=== PATIENT | male | born 1955 | race Caucasian/White ===

== ENCOUNTER → 2019-01-02 | Outpatient (CLI) | payer OTHER ==
--- NOTE | 2019-01-02 15:36 | Diagnostic Imaging Report ---
PROCEDURE: CT abdomen and pelvis without contrast. TECHNIQUE: Multiple contiguous axial images were obtained through the abdomen and pelvis without the use of intravenous contrast. Auto Exposure Controls were utilized during the CT exam to meet ALARA standards for radiation dose reduction. INDICATION: Microhematuria. FINDINGS: There are no prior studies available for comparison. There is no evidence for nephrolithiasis or urolithiasis and the kidneys do not appear to be obstructed. There is a 1.6 cm rounded exophytic lesion of slightly diminished density along the lateral aspect of the right kidney. I suspect that this is a cyst. Even so, ultrasound will be recommended to confirm this unless there are previous studies available to demonstrate that this finding is stable. The urinary bladder is only partially filled and consequently not well evaluated. There is no obvious bladder abnormality evident. The prostate gland is not enlarged. There is no pelvic mass or free fluid collection evident. The appendix is visualized and is not abnormally thickened. There is a fair amount of fecal material throughout the ascending colon. The liver, spleen, pancreas, adrenals, gallbladder, aorta, and inferior vena cava show no sign of an acute abnormality. Stomach is not well distended and consequently difficult to assess. The lung bases are clear. The bone windows show no sign of a fracture or of a destructive lesion. There is at least moderate degenerative disc and bony disease at L5-S1. IMPRESSION: 1. There is no evidence for nephrolithiasis or urolithiasis to account for the patient's microhematuria. The urinary bladder is grossly unremarkable. 2. The 1.6 cm exophytic lesion along the lateral aspect of the right kidney is most likely a cyst. Ultrasound will be recommended to confirm this. 3. There is no acute abnormality of the abdomen or pelvis noted otherwise. Dictated by: Dictated on workstation # [id number]
== END ==
LOC: RAD 14:00
PROVIDERS: ATTEND Urology
DX: N28.89 Other specified disorders of kidney and ureter (principal); R31.29 Other microscopic hematuria
CPT/HCPCS: 74176

== ENCOUNTER → 2019-01-10 | Outpatient (CLI) | payer OTHER ==
--- NOTE | 2019-01-10 17:21 | Diagnostic Imaging Report ---
PROCEDURE: US Renal Bilateral. TECHNIQUE: Multiple real-time grayscale images were obtained over the kidneys in various projections bilaterally. INDICATION: Right renal cyst COMPARISON is made to CT abdomen dated 01/02/2019. Right kidney measures 10.4 x 5.1 x 5.7 cm. Left kidney measures 9.9 x 4.8 x 5.3 cm. There is a simple appearing cyst on the lateral margin of the right kidney that measures 2.0 x 2.3 x 1.6 cm. It has simple cyst characteristics. There is no solid mass, calculus or hydronephrosis in either kidney. Urinary bladder appeared normal. IMPRESSION: Lesion in the right kidney appears to be a simple cyst by ultrasound. Dictated by: Dictated on workstation # [id number]
== END ==
LOC: RAD 12:28
PROVIDERS: ATTEND Urology
DX: N28.9 Disorder of kidney and ureter, unspecified (principal)
CPT/HCPCS: 76770

== ENCOUNTER 2019-09-22 17:26 | Emergency (ER) | payer OTHER ==
[~2019-09-22] VITALS: Ht 175 cm; Wt 80.0 kg
--- NOTE | 2019-09-22 17:37 | ED Lower Extremity ---
General Stated Complaint: BLEEDING FROM SURGICAL SITE History of Present Illness Date Seen by Provider: Sep 22, 2019 Time Seen by Provider: 17:15 Initial Comments Patient is here with recent procedure to open up his left peripheral vascular system also had stents did not have a seal placed at the femoral catheter site and had some bleeding that soaked the gauze today not much beyond the gauze. The gauze was soaked. Was told to come in by EMS and have it checked. Is on Plavix but no other blood thinner he has no pain associated with this. Onset: just prior to arrival Severity: mild Method of Injury: other Modifying Factors: Improves With Movement Allergies and Home Medications Patient Home Medication List Home Medication List Reviewed: Yes Review of Systems Constitutional: no symptoms reported EENTM: no symptoms reported Respiratory: no symptoms reported Cardiovascular: no symptoms reported Musculoskeletal: no symptoms reported Skin: other (bloodsoaked gauze in the left groin under a Tegaderm) Past Pymqgya-Fyhwff-Bobwes Hx Past Med/Social Hx: Reviewed Nursing Past Med/Soc Hx Patient Social History Recent Foreign Travel: No Contact w/Someone Who Travel: No Physical Exam Vital Signs Vital Signs - First Documented 09/22/19 17:38 Temp 36.6 Pulse 100 Resp 18 B/P (MAP) 158/97 (117) Pulse Ox 96 O2 Delivery Room Air Capillary Refill : Height, Weight, BMI Height: '" Weight: lbs. oz. kg; BMI Method: General Appearance: WD/WN, no apparent distress HEENT: TMs normal, pharynx normal Cardiovascular: regular rate, rhythm, no murmur Respiratory: lungs clear, normal breath sounds Gastrointestinal: normal bowel sounds, non tender, soft, other (left groin shows a bloodsoaked 2 x 2 100 Tegaderm no active bleeding at seems at this time.) Neurologic/Psychiatric: no motor/sensory deficits, alert, normal mood/affect, oriented x 3 Skin: normal color, warm/dry Progress/Results/Core Measures Results/Orders Lab Results Laboratory Tests Test 09/22/19 17:40 Range/Units White Blood Count 12.8 H 4.3-11.0 10^3/uL Red Blood Count 5.02 4.35-5.85 10^6/uL Hemoglobin 16.4 13.3-17.7 G/DL Hematocrit 47 40-54 % Mean Corpuscular Volume 93 80-99 FL Mean Corpuscular Hemoglobin 33 25-34 PG Mean Corpuscular Hemoglobin Concent 35 32-36 G/DL Red Cell Distribution Width 12.6 10.0-14.5 % Platelet Count 265 130-400 10^3/uL Mean Platelet Volume 9.8 7.4-10.4 FL Neutrophils (%) (Auto) 90 H 42-75 % Lymphocytes (%) (Auto) 9 L 12-44 % Monocytes (%) (Auto) 1 0-12 % Eosinophils (%) (Auto) 0 0-10 % Basophils (%) (Auto) 0 0-10 % Neutrophils # (Auto) 11.4 H 1.8-7.8 X 10^3 Lymphocytes # (Auto) 1.1 1.0-4.0 X 10^3 Monocytes # (Auto) 0.2 0.0-1.0 X 10^3 Eosinophils # (Auto) 0.0 0.0-0.3 10^3/uL Basophils # (Auto) 0.0 0.0-0.1 10^3/uL Neutrophils % (Manual) 87 % Lymphocytes % (Manual) 10 % Monocytes % (Manual) 3 % Eosinophils % (Manual) 0 % Basophils % (Manual) 0 % Band Neutrophils 0 % Prothrombin Time 12.4 12.2-14.7 SEC INR Comment 0.9 0.8-1.4 Activated Partial Thromboplast Time 26 24-35 SEC My Orders Orders - ANGELICA COLEMAN JR, MD Cbc With Automated Diff (09/22/19 17:34) Partial Thromboplastin Time (09/22/19 17:34) Protime With Inr (09/22/19 17:34) Manual Differential (09/22/19 17:40) Vital Signs/I&O 09/22/19 17:38 Temp 36.6 Pulse 100 Resp 18 B/P (MAP) 158/97 (117) Pulse Ox 96 O2 Delivery Room Air Departure Communication (Admissions) Bleeding minimally on arrival blood work shows good clotting factors and good hemoglobin remove dressing was oozing slightly pressure resolved at discussed care at home will limed to return back to his house follow-up with problems Impression Primary Impression: Post-op bleeding Qualified Codes: I97.618 - Postprocedural hemorrhage of a circulatory system organ or structure following other circulatory system procedure Disposition: HOME, SELF-CARE Condition: Stable Departure-Patient Inst. Referrals: NO,LOCAL PHYSICIAN (PCP/Family) Primary Care Physician Patient Instructions: Bleeding After Surgery Add. Discharge Instructions: Call if any problems return if need be ANGELICA COLEMAN JR, MD Sep 22, 2019 17:37
[2019-09-22 17:46] LABS: HEMATOCRIT 47 % (40-54); HEMOGLOBIN 16.4 G/DL (13.3-17.7); MEAN CORPUSCULAR HEMOGLOBIN 33 PG (25-34); MEAN CORPUSCULAR HGB CONC 35 G/DL (32-36); MEAN CORPUSCULAR VOLUME 93 FL (80-99); MEAN PLATELET VOLUME 9.8 FL (7.4-10.4); PLATELET COUNT 265 10^3/uL (130-400); RED CELL DISTRIBUTION WIDTH 12.6 % (10.0-14.5); WHITE BLOOD COUNT 12.8 10^3/uL (4.3-11.0)
[2019-09-22 17:48] LABS: BASOPHILS % (AUTO) 0 % (0-10); EOSINOPHILS % (AUTO) 0 % (0-10); LYMPHOCYTES # (AUTO) 1.1 X 10^3 (1.0-4.0); LYMPHOCYTES % (AUTO) 9 % (12-44); MONOCYTES # (AUTO) 0.2 X 10^3 (0.0-1.0); MONOCYTES % (AUTO) 1 % (0-12); NEUTROPHILS # (AUTO) 11.4 X 10^3 (1.8-7.8); NEUTROPHILS % (AUTO) 90 % (42-75)
[2019-09-22 18:05] LABS: BAND NEUTROPHILS 0 %; BASOPHILS % (MANUAL) 0 %; EOSINOPHILS % (MANUAL) 0 %; INR 0.9 (0.8-1.4); LYMPHOCYTES % (MANUAL) 10 %; MONOCYTES % (MANUAL) 3 %; NEUTROPHILS % (MANUAL) 87 %; PROTHROMBIN TIME PATIENT 12.4 SEC (12.2-14.7)
--- OUTSIDE RECORDS SUMMARY | 2019-09-22 18:16 | XMS REPORT | Continuity of Care Document ---
Author Author [facility] Organization [facility] Address Unknown Phone Unavailable Allergies There is no data. Medications There is no data. Problems Date Dx Coded Attending Type Code Diagnosis Diagnosed By 01/04/2019 THOMAS SILVA MD, Ot N28.8 9 OTHER SPECIFIED DISORDERS OF KIDNEY AND 01/04/2019 THOMAS SILVA MD, Ot R31.2 9 OTHER MICROSCOPIC HEMATURIA 01/16/2019 THOMAS SILVA MD, Ot N28.9 DISORDER OF KIDNEY AND URETER, UNSPECIFI 01/30/2019 THOMAS SILVA MD, Ot N28.9 DISORDER OF KIDNEY AND URETER, UNSPECIFI 07/05/2019 THOMAS SILVA MD Ot N28.9 DISORDER OF KIDNEY AND URETER, UNSPECIFI 07/05/2019 THOMAS SILVA MD, Ot N28.9 DISORDER OF KIDNEY AND URETER, UNSPECIFI 07/05/2019 THOMAS SILVA MD, Ot N28.9 DISORDER OF KIDNEY AND URETER, UNSPECIFI 07/06/2019 THOMAS SILVA MD, Ot N28.9 DISORDER OF KIDNEY AND URETER, UNSPECIFI Procedures There is no data. Results Test Result Range Complete blood count (CBC) with automate d white blood cell (WBC) differential - 09/22/19 17:40 Blood leukocytes automated count (number/volume) 12.8 10*3/uL 4.3-11.0 Blood erythrocytes automated count (number/volume) 5.02 10*6/uL 4.35-5.85 Venous blood hemoglobin measurement (mass/volume) 16.4 g/dL 13.3-17.7 Blood hematocrit (volume fraction) 47 % 40-54 Automated erythrocyte mean corpuscular volume 93 [ foz_us] 80-99 Automated erythrocyte mean corpuscular h emoglobin (mass per erythrocyte) 33 pg 25-34 Automated erythrocyte mean corpuscular h emoglobin concentration measurement (mass/volume) 35 g/dL 32-36 Automated erythrocyte distribution width ratio 12. 6 % 10.0- 14.5 Automated blood platelet count (count/volume) 265 10*3/uL 130-400 Automated blood platelet mean volume measurement 9.8 [foz_us] 7.4-10.4 Automated blood neutrophils/100 leukocytes 90 % 42-75 Automated blood lymphocytes/100 leukocytes 9 % 12-44 Blood monocytes/100 leukocytes 1 % 0-12 Automated blood eosinophils/100 leukocytes 0 % 0-10 Automated blood basophils/100 leukocytes 0 % 0-10 Blood neutrophils automated count (number/volume) 11.4 10*3 1.8-7.8 Blood lymphocytes automated count (number/volume) 1.1 10*3 1.0-4.0 Blood monocytes automated count (number/volume) 0. 2 10*3 0.0-1.0 Automated eosinophil count 0.0 10*3/uL 0 .0-0.3 Automated blood basophil count (count/volume) 0.0 10*3/uL 0.0-0.1 PT panel in platelet poor plasma by coag ulation assay - 09/22/19 17:40 Prothrombin time (PT) in platelet poor plasma by coagu lation assay 12.4 s 12.2-14.7 INR in platelet poor plasma or blood by coagulation as say 0.9 0.8-1.4 Activated partial thromboplastin time (a PTT) in platelet poor plasma bycoagulation assay - 09/22/19 17:40 Activated partial thromboplastin time (a PTT) in platelet poor plasma bycoagulation assay 26 s 24-35 Manual absolute plasma cell count - 09/08 05/28 17:40 Blood monocytes/100 leukocytes 3 % NRG Manual blood segmented neutrophils/100 leukocytes 87 % NRG Blood band neutrophils/100 leukocytes 0 % NRG Manual blood lymphocytes/100 leukocytes 10 % NRG Manual eosinophils/100 leukocytes in nose 0 % NRG Manual blood basophils/100 leukocytes 0 % NRG Encounters ACCT No. Visit Date/Time Discharge Status Pt. Type Provider Facility Loc./Unit Complaint [id number] 09/20/2019 15:00:00 ACT Outpatient [facility] [id number] 01/10/2019 12:28:00 019 23:59:59 CLS Outpatient SHIRA BORDEN, THOMAS A [facility] RAD RT RENAL CYST [id number] 01/02/2019 14:00:00 019 23:59:59 CLS Outpatient THOAMS SILVA MD [facility] RAD MICROHEMATURIA [id number] 09/22/2019 17:27:[address] Emergency JARED BORDEN, ANGELICA Stein [facility] ER FS BLEEDING FROM SURGICAL SITE
[2019-09-22 18:36] VITALS: BP 132/68
== END 2019-09-22 18:30 | disposition home or self-care (01) ==
LOC: EDUNIT# 17:26 → ER FS 17:27
DX: I97.618 Postprocedural hemorrhage of a circulatory system organ or structure following other circulatory system procedure (principal)
CPT/HCPCS: 36415; 85007; 85027; 85610; 85730

== ENCOUNTER 2019-10-31 10:00 | Day surgery (SDC) | payer OTHER ==
[2019-10-31] VITALS (12 sets, daily range): BP systolic 115–178; BP diastolic 68–89
[~2019-10-31] VITALS: Ht 177 cm; Wt 85.0 kg
[2019-10-31 08:59] LABS: HEMOGLOBIN 17.1 G/DL (13.3-17.7); MEAN PLATELET VOLUME 9.8 FL (7.4-10.4); WHITE BLOOD COUNT 10.3 10^3/uL (4.3-11.0)
[2019-10-31 09:01] LABS: INR 0.9 (0.8-1.4); PROTHROMBIN TIME PATIENT 12.7 SEC (12.2-14.7)
[2019-10-31 09:12] LABS: ALANINE AMINOTRANSFERASE 20 U/L (0-55); ALBUMIN 4.3 GM/DL (3.2-4.5); ALKALINE PHOSPHATASE 61 U/L (40-136); BILIRUBIN,TOTAL 0.5 MG/DL (0.1-1.0); BUN/CREATININE RATIO 12; CALCIUM 9.1 MG/DL (8.5-10.1); CARBON DIOXIDE 25 MMOL/L (21-32); CHLORIDE 107 MMOL/L (98-107); CHOLESTEROL 182 MG/DL (< 200); CREATININE SERUM 1.11 MG/DL (0.60-1.30); GFR ESTIMATED > 60; GLUCOSE 99 MG/DL (70-105); HDL CHOLESTEROL 38 MG/DL (40-60); POTASSIUM 4.3 MMOL/L (3.6-5.0); SODIUM 143 MMOL/L (135-145); TOTAL PROTEIN 7.4 GM/DL (6.4-8.2); TRIGLYCERIDES 134 MG/DL (<150); VLDL CHOLESTEROL 27 MG/DL (5-40)
[~2019-10-31 10:00] MED LIST: ADENOSINE 3 MG/1 ML (ADENOSCAN) 30ML VIAL IV ONE; ASPI-999 PO; ATOR40TA70 PO; CARV12.53 PO; CLOP75TA28 PO; CYCL10TA9 PO; GABA-490 PO; HEParin (CATH LAB) 2,000 ML IV ONE; HEParin 1000 UNIT/ML (10ML VIAL) FOR BOLUS ONE; LIDOCAINE 1% INJ 20 ML 20 ML VIAL ONE; MIDAZOLAM 5 MG/5 ML (VERSED) VIAL ONE; MULT-1136 PO; NS IV 1000 ML 1,000 ML IV SCH; NS IV 1000 ML 1,000 ML ONE; fentaNYL INJECTION 100 MCG/2 ML AMP ONE
[2019-10-31] MEDS ORDERED: NS IV 1000 ML 1,000 ML IV SCH (10:27)
--- NOTE | 2019-10-31 10:29 | Cardiac Procedure Note-CS/ASA ---
Pre-Procedure Note Pre-Op Procedure Note H&P Reviewed The H&P was reviewed, patient examined and no changes noted. Date H&P Reviewed: Oct 31, 2019 Time H&P Reviewed: 09:45 Conscious Sedation Pre-Proced Time 09:45 ASA Score 3 For ASA 3 and 4: Consider anesthesia and medical clearance. Also, for patients with a history of failed moderate sedation consider anesthesia. Airway Lungs Heart ASA score ASA 1: a normal healthy patient ASA 2: a patient with a mild systemic disease (mid diabetes, controlled hypertension, obesity ASA 3: a patient with a severe systemic disease that limits activity (angina, COPD, prior Myocardial infarction) ASA 4: a patient with an incapacitating disease that is a constant threat to life (CHF, renal failure) ASA 5: a moribund patient not expected to survive 24 hrs. (ruptured aneurysm) ASA 6: a declared brain- patient whose organs are being harvested. For emergent operations, add the letter E after the classification Mallampati Classification Grade 2 Sedation Plan Analgesia, Amnesia, Plan communicated to team members, Discussed options with patient/fam, Discussed risks with patient/fam The patient is an appropriate candidate to undergo the planned procedure, sedation, and anesthesia. The patient immediately re-assessed prior to indication. MAU HERNANDEZ MD FACP FAC CCDS Oct 31, 2019 10:29
[2019-10-31] MEDS ORDERED: PATIENT MAY USE OWN MEDS, ALL PO SCH (10:30)
--- NOTE | 2019-10-31 10:31 | Discharge Inst-Cardiology ---
Discharge Inst-Cardiac Discharge Medications Continued Medications: Aspirin (Aspirin) 81 Mg Tab.chew 81 MG PO DAILY, TAB Atorvastatin Calcium (Atorvastatin Calcium) 40 Mg Tablet 40 MG PO DAILY, TAB Carvedilol (Carvedilol) 12.5 Mg Tablet 12.5 MG PO BID, TAB Clopidogrel Bisulfate (Clopidogrel) 75 Mg Tablet 75 MG PO DAILY, TAB Cyclobenzaprine HCl (Cyclobenzaprine HCl) 10 Mg Tablet 10 MG PO PRN, TAB Gabapentin (Gabapentin) 400 Mg Capsule 400 MG PO TID, CAP Multivitamin (Multivitamin) 1 Each Tablet 1 EACH PO DAILY, TAB MAU HERNANDEZ MD FACP FACC CCDS Oct 31, 2019 10:31
--- NOTE | 2019-10-31 10:32 | Discharge Inst-Post CATH ---
Discharge Inst-CATH/EP Post Cardiac Cath/EP D/C Inst Follow Up/Plan F/u with Dr Ty next week No smoking ACTIVITY * Go Home directly and rest. * Limit activity of the leg (or wrist if it was used) for 7 days including aerobics, swimming, jogging, bicycling, etc. * Restrict stair-climbing for 7 days if possible, if not, climb up with your non-cath leg, then bring together on the same step. * Avoid lifting, pushing, pulling or excessive movement of the affected extremity for 7 days. * Customary sexual activity may be resumed after 2 days-use caution not to use a position that strains or causes pain to the affected extremity. * No driving for 24 hours. * NO SMOKING. * Avoid straining for bowel movements for 7 days. * Gentle walking on level ground is allowed. * Returning to work will depend on the type of procedure and the results. Your doctor will discuss this with you. CALL YOUR DOCTOR FOR ANY OF THE FOLLOWING: *If bleeding from the puncture site occurs- Apply gentle pressure to site with clean cloth and call your doctor or EMS. * If a knot or lump forms under the skin, increases in size, or causes pain. * If bruising appears to be worsening or moving further down your leg instead of disappearing. * Temperature above 101 F. CARE OF YOUR GROIN INCISION; * Bruising or purple discoloration of the skin near the puncture site is common. * You may shower only, no bathtub bathing for 5 days. Be careful to avoid slipping as your leg may feel stiff. * If a closure device was used on your femoral artery, please see the attached guide regarding care of the device and your leg. * Leave dressing on FOR 24 hours. CARE OF YOUR WRIST INCISION; * Bruising or purple discoloration of the skin near the puncture site is common. * You may shower. * DO NOT submerge wrist. * Leave dressing on FOR 24 hours. MAU TY MD FACP FAC CCDS Oct 31, 2019 10:32
--- NOTE | 2019-10-31 13:12 | CARDIAC CATHETERIZATION ---
DATE OF SERVICE: 10/31/2019 CARDIAC CATHETERIZATION REPORT INDICATIONS: The patient is a 64-year-old gentleman, who was recently diagnosed with cardiomyopathy with a reported ejection fraction of approximately 40%. The electrocardiogram is suggestive of prior inferior wall myocardial infarction. Cardiac catheterization was recommended. Informed consent was obtained. DESCRIPTION OF PROCEDURE: He was brought to the cardiac catheterization laboratory in a fasting state. Right groin was prepared and draped in the usual sterile fashion. Lidocaine 1% was used for local anesthesia. Modified Seldinger technique was used to advance a 5-Andorran sheath in the right femoral artery, 5-Andorran JL4 catheter for left coronary angiography, 5-Andorran JR4 catheter for right coronary angiography, 5-Andorran pigtail catheter was used for left heart catheterization and left ventricular angiography. Aortic root angiography was also carried out. The right aortic root angiography was carried out to make sure that there were no additional coronary arteries, because the left circumflex artery was diminutive. No additional coronary arteries were seen. Subsequently, fractional flow reserve measurement was carried out in the right coronary artery that is described below. FRACTIONAL FLOW RESERVE MEASUREMENT IN THE RIGHT CORONARY ARTERY: The sheath was exchanged over a wire for a 6-Andorran sheath. The 5000 units of intravenous heparin were given. A 6-Andorran JR4 guide catheter was used to engage the right coronary artery. A pressure wire was across that was advanced across the lesion and the tip was placed in the distal vessel. Adenosine 140 mcg per kilogram per minute was infused for two and a half minutes. Fractional flow reserve was 0.92 and a lesion seen in the proximal right coronary artery that appeared to be 40% to 50% angiographically with some haziness. This lesion, based on fractional flow reserve measurement, is hemodynamically insignificant. The wire was removed. Angiography of the right coronary artery was repeated to make sure that there was no change in status. The catheter was then removed. The angiography of the right femoral artery was carried out through the sheath. Mynx was used to achieve hemostasis. HEMODYNAMICS: Left ventricular end-diastolic pressure following coronary angiography was 14 mmHg. There was no significant pressure gradient on pullback across the aortic valve. Ascending aortic pressure was 121/66 with a mean 86 mmHg. CORONARY ANGIOGRAPHY: Left main coronary artery is free of significant disease. Left anterior descending artery has mild plaques. Right coronary artery is diminutive. Right coronary artery is dominant. It had a mild to moderate proximal plaque with stenosis up to approximately 40% to 50%. Fractional flow reserve across these lesions is 0.92, indicating hemodynamic insignificance. LEFT VENTRICULAR ANGIOGRAPHY: Left ventricular angiography was carried out in right anterior oblique projection. There is hypokinesis to akinesis of the diaphragmatic wall of the left ventricle. Left ventricular ejection fraction is approximately 45%. AORTIC ROOT ANGIOGRAPHY: Aortic root angiography did not indicate any significant aortic root or ascending aortic aneurysm or dissection. Aortic valve leaflets exhibit good leaflet excursion. No significant aortic regurgitation is seen. No additional coronary arteries are identified other than the ones described above. CONCLUSIONS: 1. Mild coronary artery disease. 2. Hypokinesis to akinesis of the diaphragmatic wall of the left ventricle with left ventricular ejection fraction of approximately 45%. 3. Mild elevation of left ventricular end-diastolic pressure. DISCUSSION AND RECOMMENDATIONS: Based on results of the study, it appears appropriate to continue a conservative approach. Risk factor modification was reviewed. Outpatient followup is advised for further adjustment of medications. Job ID: [id number] DocumentID: [id number] Dictated Date: 10/31/2019 10:27:13 Zipper Setter Chainstitch Date: 10/31/2019 13:12:17 Dictated By: MAU HERNANDEZ MD, MA, FACP, FACC,
--- NOTE | 2019-10-31 14:47 | NUR ---
normal saline 1l bag infused.
== END 2019-10-31 14:47 | disposition home or self-care (01) ==
LOC: CATH 10:00 → SDC 10:40 → CATH 14:47
PROVIDERS: ATTEND Internal Medicine Cardiovascular Disease
DX: I42.0 Dilated cardiomyopathy (principal); I25.10 Atherosclerotic heart disease of native coronary artery without angina pectoris; I10 Essential (primary) hypertension; E78.5 Hyperlipidemia, unspecified; R94.31 Abnormal electrocardiogram [ECG] [EKG]; Z79.82 Long term (current) use of aspirin; Z79.899 Other long term (current) drug therapy; Z87.891 Personal history of nicotine dependence
CPT/HCPCS: 36415; 80053; 80061; 85027; 85610; 85730; 87081; 93458; 93567

== ENCOUNTER → 2020-08-01 | Outpatient (CLI) | payer OTHER ==
[~2020-08-01] MED LIST changes: -ADENOSINE 3 MG/1 ML (ADENOSCAN) 30ML VIAL IV ONE; -HEParin (CATH LAB) 2,000 ML IV ONE; -HEParin 1000 UNIT/ML (10ML VIAL) FOR BOLUS ONE; -LIDOCAINE 1% INJ 20 ML 20 ML VIAL ONE; -MIDAZOLAM 5 MG/5 ML (VERSED) VIAL ONE; -NS IV 1000 ML 1,000 ML IV SCH; -NS IV 1000 ML 1,000 ML ONE; -fentaNYL INJECTION 100 MCG/2 ML AMP ONE
--- NOTE | 2020-08-01 12:49 | Diagnostic Imaging Report ---
PROCEDURE: US Thyroid. TECHNIQUE: Multiple Real-time grayscale images were obtained of the thyroid in various projections. INDICATION: Thyroid nodule. COMPARISON: No previous for comparison. FINDINGS: The right lobe measures 5 x 2.3 x 1.7 cm. There are several small cystic areas which are anechoic. There is a solid hypoechoic nodule measuring 1 x 1 x 0.9 cm inferiorly in the right lobe. The left lobe measures 5 x 2.2 x 2 cm. There are several anechoic cystic areas. There is a solid hypoechoic slightly lobulated well-circumscribed nodule with some calcification inferiorly. This measures 1.1 x 1.1 x 0.9 cm. The isthmus measures 3 mm. IMPRESSION: Multinodular and multicystic thyroid. The hypoechoic nodule which is slightly lobulated and shows some calcification inferiorly in the left lobe is moderately suspicious. TI-RADS 4 Dictated by: Dictated on workstation # [id number]
== END ==
LOC: RAD FS 10:45
PROVIDERS: ATTEND Nurse Practitioner
DX: E04.2 Nontoxic multinodular goiter (principal)
CPT/HCPCS: 76536

== ENCOUNTER → 2022-03-05 | Outpatient (CLI) | payer OTHER ==
[~2022-03-05] MED LIST changes: +CYCL10TA25 PO; -CYCL10TA9 PO
== END ==
LOC: CARDFS 11:47
PROVIDERS: ATTEND Internal Medicine Cardiovascular Disease
DX: I35.1 Nonrheumatic aortic (valve) insufficiency (principal)
CPT/HCPCS: 93306

== ENCOUNTER → 2022-03-10 | Outpatient (CLI) | payer OTHER ==
[~2022-03-10] VITALS: Ht 177 cm; Wt 81.0 kg
[~2022-03-10] MED LIST changes: +REGADENOSON 0.4 MG/5 ML SYR (LEXISCAN) IV ONE
[2022-03-10] MEDS: CATHETER FLUSH 10 ML SYR IVP PRN ×2 (10:58→13:17)
[2022-03-10 13:16] VITALS: BP 143/99
--- NOTE | 2022-03-12 11:45 | STRESS TEST ---
DATE OF SERVICE: 03/10/2022 RESTING AND POST REGADENOSON TECHNETIUM-99M TETROFOSMIN SPECT CT IMAGING ORDERING PHYSICIAN: Dr. Ty. PRIMARY PHYSICIAN: Dr. Caldwell. CLINICAL DIAGNOSIS: Coronary artery disease. Baseline images were carried out after injection of 10.82 mCi of technetium-99m Tetrofosmin. This was followed by 0.4 mg regadenoson and 30.6 mCi of technetium-99m Tetrofosmin for stress imaging. The electrocardiogram showed sinus rhythm at baseline. The electrocardiogram did not change significantly with the regadenoson infusion. The patient tolerated the procedure well. Review of images at rest and following stress indicates a large inferolateral perfusion defect that is fixed. Gated images show inferolateral akinesis. Left ventricular ejection fraction is calculated to be 23%. There is moderate cardiomegaly. Left ventricular end-diastolic volume is 116 mL. CONCLUSION: 1. Large inferolateral myocardial infarction without ischemia. 2. Inferolateral akinesis. 3. Impairment of global left ventricular systolic function with a calculated ejection fraction of 23%. Job ID: [id number] DocumentID: [id number] Dictated Date: 03/12/2022 09:40:27 Day Care Provider Date: 03/12/2022 11:42:00 Dictated By: MAU TY MD; JAIMIE; FACP; FACC;
== END ==
LOC: CARD 10:33
PROVIDERS: ATTEND Internal Medicine Cardiovascular Disease
DX: I25.10 Atherosclerotic heart disease of native coronary artery without angina pectoris (principal)
CPT/HCPCS: 78452; 93017

== ENCOUNTER → 2022-08-17 | Outpatient (CLI) | payer OTHER ==
[~2022-08-17] MED LIST changes: +CATHETER FLUSH 10 ML SYR IV PRN; +IOHEXOL 350 MG/ML 100 ML (OMNIPAQUE 350) VIAL IV ONE; +NS 100 ML (IVPB) BAG IV ONE; -REGADENOSON 0.4 MG/5 ML SYR (LEXISCAN) IV ONE
[2022-08-17 12:08] LABS: CREATININE SERUM 1.1 MG/DL (0.60-1.30)
--- NOTE | 2022-08-17 13:54 | Diagnostic Imaging Report ---
PROCEDURE: CT chest without contrast. TECHNIQUE: Multiple contiguous axial images were obtained through the chest without the use of intravenous contrast. Auto Exposure Controls were utilized during the CT exam to meet ALARA standards for radiation dose reduction. INDICATION: Left pulmonary lesion. FINDINGS: There is no previous study available at this time for comparison. There is centrilobular emphysema in both lungs with an upper lobe predominance. There is an approximately 0.8 cm in diameter hyperdense nodule in the left upper lobe adjacent to the mediastinum at the level of the aorticopulmonary window. Note is also made of an approximately 0.4 cm nodule in the right middle lobe adjacent to the minor fissure. There is no evidence of consolidation. No significant pleural or pericardial fluid is identified. There is minimal atherosclerotic calcification. No significant pleural or pericardial fluid is identified and there is no evidence of pathologic adenopathy in the thorax. The upper abdominal sections reveal a mildly prominent right adrenal gland nodule which could represent an adrenal gland adenoma. IMPRESSION: Probable granulomatous residua including a dominant 0.8 cm hyperdense nodule in the left upper lobe; otherwise, there is diffuse centrilobular background emphysema without other acute abnormality identified. Note is made of a subcentimeter right adrenal gland nodule which likely represents an adrenal gland adenoma. Dictated by: Dictated on workstation # [id number]
--- NOTE | 2022-08-17 14:14 | Diagnostic Imaging Report ---
PROCEDURE: CT abdomen and pelvis with and without contrast. TECHNIQUE: Precontrast acquisitions were acquired through the abdomen and pelvis. Multiple contiguous axial images were obtained through the abdomen and pelvis after the administration of intravenous contrast. Auto Exposure Controls were utilized during the CT exam to meet ALARA standards for radiation dose reduction. INDICATION: Blood in the stool as well as urine. Comparison is made with prior CT from 01/02/2019. FINDINGS: The lung bases are clear. No focal liver mass is identified. The gallbladder is unremarkable. There is no biliary ductal dilatation. Pancreas and spleen are unremarkable. There is some slight nodularity to the right adrenal gland measuring 14 mm, likely small adenoma. The left adrenal gland is unremarkable. Kidneys are without calculi or hydronephrosis. Small cortical low-attenuation lesion in the right kidney appears stable and most suggestive of a cyst. Aorta is calcified but nonaneurysmal. Small and large bowel loops are normal in caliber. There is no obstruction. There is no ascites. There are bilateral common iliac stents. No inflammatory changes are seen. The bladder is unremarkable. Prostate is unremarkable. There are bilateral fat-containing inguinal hernias. Bony structures are unremarkable. IMPRESSION: 1. Small right adrenal nodule, suggestive of a small adenoma. 2. Probable small right renal cyst, stable. 3. No other significant abnormality is detected apart from bilateral fat-containing inguinal hernias. Dictated by: Dictated on workstation # [id number]
== END ==
LOC: RAD 11:37
PROVIDERS: ATTEND Nurse Practitioner
DX: Z01.89 Encounter for other specified special examinations (principal); R91.1 Solitary pulmonary nodule; J43.9 Emphysema, unspecified; E27.9 Disorder of adrenal gland, unspecified; K40.20 Bilateral inguinal hernia, without obstruction or gangrene, not specified as recurrent; R31.9 Hematuria, unspecified; R19.5 Other fecal abnormalities
CPT/HCPCS: 36415; 71250; 74178; 82565

== ENCOUNTER → 2022-09-21 | Outpatient (CLI) | payer OTHER ==
[~2022-09-21] MED LIST changes: +HOLD METFORMIN - RECEIVED CONTRAST 20 ML VIAL IV SCH
--- NOTE | 2022-09-21 09:07 | Diagnostic Imaging Report ---
PROCEDURE: CT of the abdomen with and without contrast and CT of the pelvis with contrast. TECHNIQUE: Precontrast acquisitions were acquired through the abdomen. Multiple contiguous axial images were obtained through the abdomen and pelvis after administration of intravenous contrast. Auto Exposure Controls were utilized during the CT exam to meet ALARA standards for radiation dose reduction. INDICATION: Hematuria. Patient does have history of kidney stones. Correlation is made with prior CT from 08/17/2022. Lung bases are clear. Liver and gallbladder are unremarkable. There is no biliary ductal dilatation. The pancreas and spleen are unremarkable. Small right adrenal nodules are again noted. Left adrenal glands unremarkable. A small slightly exophytic right renal cyst appears stable. No definite renal or ureteral calculi are detected. There is no obstruction or hydronephrosis. Delayed images demonstrate bilateral renal collecting systems and ureters to be unremarkable. There does appear to be some mild generalized bladder wall thickening but no discrete mass. There are bilateral fat-containing inguinal hernias. Aorta is nonaneurysmal. There are bilateral common iliac artery stents. No free fluid or fluid collection is seen. Bowel loops are normal caliber. The prostate is unremarkable. IMPRESSION: 1. No evidence of urinary tract calculi or obstruction. There are small bilateral renal cysts. 2. Bladder wall thickening without evidence of discrete mass. 3. Bilateral fat-containing inguinal hernias. Dictated by: Dictated on workstation # [id number]
== END ==
LOC: RAD FS 07:21
PROVIDERS: ATTEND Nurse Practitioner
DX: Z01.89 Encounter for other specified special examinations (principal); N28.1 Cyst of kidney, acquired; N32.89 Other specified disorders of bladder; K40.20 Bilateral inguinal hernia, without obstruction or gangrene, not specified as recurrent
CPT/HCPCS: 74178; Q9967